=== PATIENT | female | born 1950 | race Caucasian/White ===

== ENCOUNTER 2021-08-23 01:04 | Emergency (ER) | payer OTHER ==
[~2021-08-23 01:04] MED LIST: 3IN1 COMMODE XX; AMARYL2 MG PO; AMLODIPINE BESY10 MG PO; ASPIRIN EC81 MG PO; CEFDINIR300 MG PO; DIGITEK125 MCG PO; FENOFIBRATE160 MG PO; FIORICET1 EACH PO; GABAPENTIN800 MG PO; HYDRALAZINE25 MG PO; ONDANSETRON ODT4 MG PO; PEPCID AC20 MG PO; SINGULAIR10 MG PO; SOTALOL80 MG PO; SYNTHROID100 MCG PO; ULTRA-LIGHT RO1 EACH XX; VENLAFAXINE HCL75 M1 PO; VENTOLIN HFA IN18 GM INH; VIBRAMYCIN100 MG PO; VITAMIN D31250 MCG PO
[2021-08-23] MEDS ORDERED: NORCO 5-325 TA1 EACH PO (02:30)
== END 2021-08-23 02:52 | disposition home or self-care (01) ==
LOC: FER 01:04
DX: S63.521A Sprain of radiocarpal joint of right wrist, initial encounter (principal); I48.91 Unspecified atrial fibrillation; I12.9 Hypertensive chronic kidney disease with stage 1 through stage 4 chronic kidney disease, or unspecified chronic kidney disease; N18.30 Chronic kidney disease, stage 3 unspecified; K21.9 Gastro-esophageal reflux disease without esophagitis; E11.22 Type 2 diabetes mellitus with diabetic chronic kidney disease; Z88.0 Allergy status to penicillin; Z88.2 Allergy status to sulfonamides; Z88.1 Allergy status to other antibiotic agents; W19.XXXA Unspecified fall, initial encounter; Y92.009 Unspecified place in unspecified non-institutional (private) residence as the place of occurrence of the external cause
CPT/HCPCS: 73110

== ENCOUNTER 2022-04-08 19:44 | Emergency (ER) | payer OTHER ==
[~2022-04-08 19:44] MED LIST changes: +NORCO 5-325 TA1 EACH PO
[2022-04-08 21:19] LABS: BASOPHIL 0.6 % (0-2); HCT 36.1 % (37.0-47.0); HGB 11.9 g/dl (12.5-16.0); LYMPHOCYTE 43.9 % (15-48); MCH 29.8 pg (25.0-31.0); MCV 90.3 fL (78.0-100.0); MONOCYTE 7.1 % (0-12); NRBC 0; PLT 303 K/uL (150-400); RDW 13.2 % (11.5-14.0); WBC 8.3 K/uL (4.0-10.5)
[2022-04-08 21:44] LABS: ALBUMIN 4.2 g/dL (3.4-5.0); BILIRUBIN - TOTAL 0.3 mg/dL (0.2-1.0); BUN/CREAT RATIO (CALC) 12.3 RATIO; CREATININE 1.63 mg/dL (0.51-0.95); GLOBULIN (CALCULATION) 3.7 g/dL; TOTAL PROTEIN 7.9 g/dL (6.4-8.2)
[2022-04-08 21:48] LABS: BILIRUBIN NEGATIVE (NEGATIVE); BLOOD NEGATIVE Ery/uL (NEGATIVE); CLARITY CLEAR (CLEAR); COLOR YELLOW (YELLOW); GLUCOSE (U) NORMAL (NORMAL); LEUKOCYTES NEGATIVE Leu/uL (NEGATIVE); NITRITE NEGATIVE (NEGATIVE); PROTEIN TRACE (LOW) mg/dL (NEGATIVE); SPECIFIC GRAVITY 1.025 (1.001-1.030); UROBILINOGEN 0.2 mg/dL (0.2-1.0)
== END 2022-04-08 23:20 | disposition home or self-care (01) ==
LOC: FER 19:44
PROVIDERS: Emergency Medicine
DX: U07.1 COVID-19 (principal); I12.9 Hypertensive chronic kidney disease with stage 1 through stage 4 chronic kidney disease, or unspecified chronic kidney disease; N18.9 Chronic kidney disease, unspecified; Z79.899 Other long term (current) drug therapy; Z88.0 Allergy status to penicillin; Z88.2 Allergy status to sulfonamides; Z91.041 Radiographic dye allergy status; Z91.012 Allergy to eggs; Z91.013 Allergy to seafood; Z28.311 Partially vaccinated for COVID-19
CPT/HCPCS: 36415; 80053; 81003; 85025; J2405; J7030

== ENCOUNTER 2022-05-05 22:31 | Emergency (ER) | payer OTHER ==
[2022-05-05 22:54] LABS: BASOPHIL 0.9 % (0-2); HGB 11.4 g/dl (12.5-16.0); LYMPHOCYTE 39.9 % (15-48); MCH 29.8 pg (25.0-31.0); MCHC 32.6 g/dL (32.0-36.0); MCV 91.4 fL (78.0-100.0); MONOCYTE 7.8 % (0-12); MPV 10.4 fL (6.0-9.5); NEUTROPHIL 44.1 % (41-80); NRBC 0; PLT 226 K/uL (150-400); RBC 3.83 M/uL (4.20-5.40); RDW 13.1 % (11.5-14.0); WBC 7.6 K/uL (4.0-10.5)
[2022-05-05 23:20] LABS: ALBUMIN 3.8 g/dL (3.4-5.0); ALKALINE PHOSHATASE 70 U/L (46-116); ALT 67 U/L (14-59); AST 54 U/L (15-37); BILIRUBIN - TOTAL 0.2 mg/dL (0.2-1.0); BUN 18 mg/dL (7-18); BUN/CREAT RATIO (CALC) 14.4 RATIO; CHLORIDE 101 mmol/L (98-107); CO2 (BICARBONATE) 24 mmol/L (21-32); CREATININE 1.25 mg/dL (0.51-0.95); GLOBULIN (CALCULATION) 3.5 g/dL; GLUCOSE 286 mg/dL (74-106); POTASSIUM 4.3 mmol/L (3.5-5.1); TOTAL PROTEIN 7.3 g/dL (6.4-8.2)
[2022-05-05 23:21] LABS: ACETAMINOPHEN (TYLENOL) <2.0 ug/mL (10.0-30.0)
[2022-05-05 23:23] LABS: AMPHETAMINES NEGATIVE (NEGATIVE); BARBITURATES NEGATIVE (NEGATIVE); BILIRUBIN NEGATIVE (NEGATIVE); BLOOD NEGATIVE Ery/uL (NEGATIVE); CLARITY CLEAR (CLEAR); COLOR YELLOW (YELLOW); ECSTASY (MDMA) NEGATIVE (NEGATIVE); GLUCOSE (U) 3+ mg/dL (NORMAL); LEUKOCYTES NEGATIVE Leu/uL (NEGATIVE); MARIJUANA (THC) NEGATIVE (NEGATIVE); METHADONE NEGATIVE (NEGATIVE); NITRITE NEGATIVE (NEGATIVE); OPIATES NEGATIVE (NEGATIVE); OXYCODONE NEGATIVE (NEGATIVE); PROTEIN TRACE (LOW) mg/dL (NEGATIVE); SPECIFIC GRAVITY 1.015 (1.001-1.030); UROBILINOGEN 0.2 mg/dL (0.2-1.0)
[2022-05-05 23:28] LABS: URINARY RBC RARE
== END 2022-05-06 03:11 | disposition home or self-care (01) ==
LOC: FER 22:31
PROVIDERS: Emergency Medicine
DX: R40.4 Transient alteration of awareness (principal); U07.1 COVID-19; Z91.012 Allergy to eggs; Z91.041 Radiographic dye allergy status
CPT/HCPCS: 36415; 36600; 70450; 71045; 80053; 80305; 81001; 82803; 84484; 85025; 93005; 96360; G0480; J7030; U0002